=== PATIENT | male | born 1990 | race Caucasian/White ===

== ENCOUNTER 2017-10-30 08:21 | Day surgery (SDC) | payer OTHER ==
[~2017-10-30 08:21] MED LIST: Bupivacaine 25%/EPINEPHrine/PF 30 ML ONE; Lactated Ringers 1,000 ML IV SCH; ceFAZolin 2 GM in Premix Bag 1 BAG IV SCH
--- NOTE | 2017-10-30 08:45 | PCM.PREANE ---
Preanesthetic Assessment - Anesthesia/Transfusion/Family Hx Anesthesia History: Prior Anesthesia Without Reaction Transfusion History: No Prior Transfusion(s) - Review of Systems General: No Symptoms Pulmonary: No Symptoms Cardiovascular: No Symptoms Gastrointestinal: No Symptoms Neurological: No Symptoms Other: Reports: None - Physical Assessment Height: 1.83 m Weight: 158.757 kg ASA Class: 2 Mental Status: Alert & Oriented x3 Airway Class: Mallampati = 1 Dentition: Reports: Normal Dentition ROM/Head Extension: Full Lungs: Clear to Auscultation, Normal Respiratory Effort Cardiovascular: Regular Rate, Regular Rhythm - Allergies Allergies/Adverse Reactions: Allergies Allergy/AdvReac Type Severity Reaction Status Date / Time No Known Allergies Allergy Verified 10/28/17 13:32 - Anesthesia Plan Pre-Op Medication Ordered: None - Acknowledgements Anesthesia Type Planned: General Anesthesia Pt an Appropriate Candidate for the Planned Anesthesia: Yes Alternatives and Risks of Anesthesia Discussed w Pt/Guardian: Yes Pt/Guardian Understands and Agrees with Anesthesia Plan: Yes Additional Comments: PMH: morbid obesity, htn (on lisinopril and metopralol). PLAN: GET PreAnesthesia Questionnaire Other HEENT History: wears glasses Cardiovascular History: Reports: Hypertension Respiratory History: Reports: Other (See Below) Other Respiratory History: had recent sleep study for sleep apnea, no results yet Gastrointestinal History: Reports: GERD Endocrine/Metabolic History: Reports: Obesity/BMI 30+ - Past Surgical History Head Surgeries/Procedures: Reports: None Musculoskeletal Surgical History: Reports: Other (See Below) Other Musculoskeletal Surgeries/Procedures:: bilateral ACL repairs (has screw in both knees) - SUBSTANCE USE Smoking Status *Q: Former Smoker Recreational Drug Use History: No - HOME MEDS Home Medications: Home Meds Hydrocodone/Acetaminophen [Hydrocodon-Acetaminophen 5-325] 1 tab PO ASDIRECTED PRN 10/28/17 [History] Losartan/Hydrochlorothiazide [Losartan-HCTZ 50-12.5 MG] 1 tab PO BEDTIME [History] Metoprolol Succinate 25 mg PO BEDTIME 10/28/17 [History] Omeprazole 20 mg PO DAILY 10/28/17 [History] - CURRENT (IN HOUSE) MEDS Current Meds: Current Medications Lactated Ringer's (Ringers, Lactated) 1,000 mls @ 125 mls/hr IV ASDIRECTED CHARLINE Last Admin: 10/30/17 08:36 Dose: 125 mls/hr Cefazolin Sodium/Dextrose 2 gm (/ Premix) 50 mls @ 50 mls/hr IV ONETIME CHARLINE Discontinued Medications Bupivacaine HCl/Epinephrine Bitart (Sensorc Mpf 0.25%-Epi [id number]) Confirm Administered Dose 30 mls @ as directed .ROUTE .STK-MED ONE Stop: 10/30/17 08:20
[2017-10-30] MEDS ORDERED: Lidocaine 2% 5 ML SDV ONE (09:03)
[2017-10-30] MEDS ORDERED: Rocuronium 10 MG/ML 10 ML Syringe ONE (09:04)
[2017-10-30] MEDS ORDERED: Neostigmine Methylsulfate 1 MG/ML 5 ML Syringe ONE (09:04)
[2017-10-30] MEDS ORDERED: Midazolam 1 MG/ML 2 ML SDV ONE (09:04)
[2017-10-30] MEDS ORDERED: Propofol 200 MG/20 ML SDV ONE ×2 (09:04→10:54)
[2017-10-30] MEDS ORDERED: Ondansetron 4 MG/2 ML SDV ONE (09:04)
[2017-10-30] MEDS ORDERED: fentaNYL 250 MCG/5 ML SDV ONE (09:04)
[2017-10-30] MEDS ORDERED: HYDROmorphone 2 MG/ML Syringe ONE (09:11)
[2017-10-30] MEDS ORDERED: Thrombin (Bovine) 5,000 Unit Kit ONE (09:27)
[2017-10-30] MEDS ORDERED: Gelatin Sponge,Absorbable 12-7 mm Sponge TOP ONE (09:27)
[2017-10-30] MEDS ORDERED: fentaNYL 100 MCG/2 ML SDV ONE (11:33)
--- NOTE | 2017-10-30 11:51 | PCM.OPNOTE ---
- General Post-Op/Procedure Note Date of Surgery/Procedure: 10/30/17 Operative Procedure(s): ORIF left clavicle Findings: comminuted displaced clavicle Pre Op Diagnosis: comminuted displaced left clavicle fx Post-Op Diagnosis: same Anesthesia Technique: General ET Tube Primary Surgeon: Anshul Guillen Mai Hand Fretted Instrument Maker: Christal Colindres Reason Hand Fretted Instrument Maker Was Necessary: reduction, positioning and closing EBL in mLs: 30 Complications: none Condition: Good
[2017-10-30] MEDS ORDERED: Acetaminophen/HYDROcodone 325-5 MG Tab ONE (11:58)
[2017-10-30] MEDS ORDERED: fentaNYL 100 MCG/2 ML SDV IVPUSH PRN (12:13)
--- NOTE | 2017-10-30 13:16 | OR ---
SURGEON: Anshul Webster MD DATE OF PROCEDURE: 10/30/2017 CLAIMS ADJUSTOR: Christal Colindres PA-C. PREOPERATIVE DIAGNOSIS: Displaced comminuted left clavicle fracture. POSTOPERATIVE DIAGNOSIS: Displaced comminuted left clavicle fracture. OPERATION PERFORMED: Open reduction and internal fixation of left clavicle. ANESTHESIA: General. COMPLICATIONS: None. ESTIMATED BLOOD LOSS: 30 mL. SPECIMENS: None. IMPLANTS: William left distal clavicle plate, one 3.5 interfragmentary screw, three medial nonlocking 3.5 screws, one lateral 3.5 nonlocking screw, and four 3.5 locking screws. INDICATIONS: The patient is a 26-year-old male, who suffered a comminuted fracture several weeks ago. Due to continued pain and displacement, it was decided to undergo operative fixation. He understands the risks, benefits, alternatives, complications of the procedure including, but limited to infection, neurovascular injury, continued pain, nonresolution of symptoms, nonunion, malunion, need for further surgery, deep infection, and he wished to proceed. DESCRIPTION OF PROCEDURE: The patient was seen in the preoperative area. Upper extremity marked with the patient. He was transferred to the operating room and placed supine on the operating room table. General anesthesia was induced. Endotracheal tube was placed. He received preoperative antibiotics, Ancef. The left upper extremity was prepped and draped in a fashion using alcohol followed by ChloraPrep. After placing a bump under the left shoulder. A formal time-out was taken, identifying the correct patient, procedure, and extremity. Area over top of the distal third of the clavicle was marked out. This was then anesthetized with 0.5% Marcaine with epinephrine and then a 10 cm incision centered over the fracture site was made. Dissection was carried down to the subcutaneous tissues. Hemostasis was obtained. The fascia between the deltoid and trap and pec was opened in the platysma and the fascia was opened over the fracture. There was noted be comminuted fracture and was already beginning to heal. Subperiosteal dissection over the fracture was made. The comminuted pieces were stuck in the soft tissue anteriorly. The fracture was able to be reduced. Anatomically, there was noted be a gap laterally from the comminuted fracture. Interfragmentary screw was then placed from anterior to posterior. It was difficult to find a plate to fit from the set, but a distal plate was settled upon 4th screw holes medial and seven lateral. A 3.5 screw was placed medial and lateral to reduce the plate and two more screws, 3.5 nonlocking screws were placed medial. The screw just medial to the fracture was not able to be placed because of the interfragmentary screw, and then four locking screws were placed bi-cortically in the lateral position. The arm moved well. Following this, there was no motion at the fracture site. It was held in anatomic reduction. Wound was then thoroughly irrigated. The fascia was closed with 0 Vicryl, subcutaneous tissues with 2-0 Strata-Fix, and the skin was closed with a running 4-0 Monocryl. Sterile dressing was applied. The patient was extubated in operating room and transferred to recovery room in stable condition. Sponge and needle counts were correct at the end of the case. There were no complications. PLAN: The patient will be kept nonweightbearing with a sling. CATHI ARCHULETA /[id number]
--- NOTE | 2017-10-30 14:28 | PCM.POSTAN ---
POST ANESTHESIA ASSESSMENT - MENTAL STATUS Mental Status: Alert, Oriented - RESPIRATORY Respiratory Status: Respiratory Rate WNL, Airway Patent, O2 Saturation Stable - CARDIOVASCULAR CV Status: Pulse Rate WNL, Blood Pressure Stable - GASTROINTESTINAL GI Status: No Symptoms - POST OP HYDRATION Hydration Status: Adequate & Stable
--- NOTE | 2017-10-30 14:52 | PCM48HPAN ---
Post Anesthesia Note - EVALUATION WITHIN 48HRS OF ANESTHETIC Vital Signs in Normal Range: Yes Patient Participated in Evaluation: Yes Respiratory Function Stable: Yes Airway Patent: Yes Cardiovascular Function Stable: Yes Hydration Status Stable: Yes Pain Control Satisfactory: Yes Nausea and Vomiting Control Satisfactory: Yes Mental Status Recovered: Yes
--- NOTE | 2017-10-30 16:46 | CR ---
EXAMINATION: Left clavicle HISTORY: ORIF COMPARISON: 10/28/2017 TECHNIQUE: 2 views FINDINGS/IMPRESSION: There is screw and plate fixation of a comminuted mid left clavicle fracture in near-anatomic alignment. The remaining osseous structures and joint spaces appear preserved.
== END 2017-10-30 16:15 | disposition home or self-care (01) ==
LOC: MW.SDS 08:21
PROVIDERS: ATTEND Orthopaedic Surgery
DX: S42.002A Fracture of unspecified part of left clavicle, initial encounter for closed fracture (principal); I10 Essential (primary) hypertension; M25.562 Pain in left knee; K21.9 Gastro-esophageal reflux disease without esophagitis; E66.9 Obesity, unspecified; W01.0XXA Fall on same level from slipping, tripping and stumbling without subsequent striking against object, initial encounter; Z79.51 Long term (current) use of inhaled steroids; Z79.899 Other long term (current) drug therapy; Z68.42 Body mass index [BMI] 45.0-49.9, adult
CPT/HCPCS: 23515; 73000; C1713; J1170; J2250; J2405; J3010; J7120; 00450; J2704

== ENCOUNTER 2018-02-10 08:20 | Emergency (ER) | payer OTHER ==
--- NOTE | 2018-02-10 08:39 | EDM.PDOC ---
ED HPI GENERAL MEDICAL PROBLEM - General Chief Complaint: Skin Complaint Stated Complaint: ITCHY HANDS AND RASH ON ABDOMEN Time Seen by Provider: 02/10/18 08:37 Source of Information: Reports: Patient - History of Present Illness INITIAL COMMENTS - FREE TEXT/NARRATIVE: HISTORY AND PHYSICAL: History of present illness: Patient presents with an itchy rash involving his hands and around his navel, he did take Benadryl 2 hours prior which results symptoms, his employer had recommended that he be evaluated. Patient is asymptomatic at current no lip swelling tongue swelling or oral pharyngeal edema no rash No fever nausea vomiting chills sweats no chest pain shortness breath headache dizziness palpitation no bowel or urine symptoms No new factors in the patient's life he has had similar symptoms in the past he may benefit from allergy testing [] Review of systems: As per history of present illness and below otherwise all systems reviewed and negative. Past medical history: As per history of present illness and as reviewed below otherwise noncontributory. Surgical history: As per history of present illness and as reviewed below otherwise noncontributory. Social history: No reported history of drug or alcohol abuse. Family history: As per history of present illness and as reviewed below otherwise noncontributory. Physical exam: HEENT: Atraumatic, normocephalic, pupils reactive, negative for conjunctival pallor or scleral icterus, mucous membranes moist, throat clear, neck supple, nontender, trachea midline. Lungs: Clear to auscultation, breath sounds equal bilaterally, chest nontender. Heart: S1S2, regular, negative for clicks, rubs, or JVD. Abdomen: Soft, nondistended, nontender. Negative for masses or hepatosplenomegaly. Negative for costovertebral tenderness. Pelvis: Stable nontender. Genitourinary: Deferred. Rectal: Deferred. Extremities: Atraumatic, negative for cords or calf pain. Neurovascular unremarkable. Neuro: Awake, alert, oriented. Cranial nerves II through XII unremarkable. Cerebellum unremarkable. Motor and sensory unremarkable throughout. Exam nonfocal. Skin unremarkable Diagnostics: [Clinical ] Therapeutics: [ continue Benadryl/Zantac ] Impression: Dermatitis resolved deffinitive disposition and diagnosis as appropriate pending reevaluation and review of above. - Related Data Allergies Allergy/AdvReac Type Severity Reaction Status Date / Time No Known Allergies Allergy Verified 02/10/18 08:32 Home Meds: Home Meds Hydrocodone/Acetaminophen [Hydrocodon-Acetaminophen 5-325] 1 tab PO ASDIRECTED PRN 10/28/17 [History] Losartan/Hydrochlorothiazide [Losartan-HCTZ 50-12.5 MG] 1 tab PO BEDTIME [History] Metoprolol Succinate 25 mg PO BEDTIME 10/28/17 [History] Omeprazole 20 mg PO DAILY 10/28/17 [History] Past Medical History Other HEENT History: wears glasses Cardiovascular History: Reports: Hypertension Respiratory History: Reports: Other (See Below) Other Respiratory History: had recent sleep study for sleep apnea, no results yet Gastrointestinal History: Reports: GERD Endocrine/Metabolic History: Reports: Obesity/BMI 30+ - Past Surgical History Head Surgeries/Procedures: Reports: None Musculoskeletal Surgical History: Reports: Other (See Below) Other Musculoskeletal Surgeries/Procedures:: bilateral ACL repairs (has screw in both knees) Social & Family History - Tobacco Use Smoking Status *Q: Former Smoker - Recreational Drug Use Recreational Drug Use: No Drug Use in Last 12 Months: No ED ROS GENERAL - Review of Systems Review Of Systems: ROS reveals no pertinent complaints other than HPI. ED EXAM, SKIN/RASH Exam: See Below Departure - Departure Time of Disposition: 08:39 Disposition: Home, Self-Care 01 Condition: Good Clinical Impression: Dermatitis - Discharge Information Referrals: Jennifer Mccarty NP [Primary Care Provider] - Additional Instructions: The following information is given to patients seen in the emergency department who are being discharged to home. This information is to outline your options for follow-up care. We provide all patients seen in our emergency department with a follow-up referral. The need for follow-up, as well as the timing and circumstances, are variable depending upon the specifics of your emergency department visit. If you don't have a primary care physician on staff, we will provide you with a referral. We always advise you to contact your personal physician following an emergency department visit to inform them of the circumstance of the visit and for follow-up with them and/or the need for any referrals to a consulting specialist. The emergency department will also refer you to a specialist when appropriate. This referral assures that you have the opportunity for follow-up care with a specialist. All of these measure are taken in an effort to provide you with optimal care, which includes your follow-up. Under all circumstances we always encourage you to contact your private physician who remains a resource for coordinating your care. When calling for follow-up care, please make the office aware that this follow-up is from your recent emergency room visit. If for any reason you are refused follow-up, please contact the [facility] emergency department at and asked to speak to the emergency department charge nurse.
== END 2018-02-10 08:46 | disposition home or self-care (01) ==
LOC: MW.ED 08:20
DX: L30.9 Dermatitis, unspecified (principal); I10 Essential (primary) hypertension; E66.9 Obesity, unspecified; Z87.891 Personal history of nicotine dependence
CPT/HCPCS: 99282

== ENCOUNTER 2018-02-10 11:15 | Emergency (ER) | payer OTHER ==
[2018-02-10] MEDS ORDERED: methylPREDNISolone Sodium Succinate 125 MG/2 ML SDV IM ONE (12:00)
--- NOTE | 2018-02-10 12:03 | EDM.PDOC ---
ED HPI GENERAL MEDICAL PROBLEM - General Chief Complaint: Skin Complaint Stated Complaint: ITCHY SWELLING HANDS Time Seen by Provider: 02/10/18 12:01 Source of Information: Reports: Patient - History of Present Illness INITIAL COMMENTS - FREE TEXT/NARRATIVE: HISTORY AND PHYSICAL: History of present illness: Patient returns for the second time today with itchy hands he states are swollen there is minimal swelling likely any swelling results from high salt intake rather than allergy there is no lip swelling tongue swelling or pharyngeal edema dermatitis is improved he has been taking Benadryl I have actually not seen any rash is complained of itchy rash a couple of times today No fever nausea vomiting chills sweats Review of systems: As per history of present illness and below otherwise all systems reviewed and negative. Past medical history: As per history of present illness and as reviewed below otherwise noncontributory. Surgical history: As per history of present illness and as reviewed below otherwise noncontributory. Social history: No reported history of drug or alcohol abuse. Family history: As per history of present illness and as reviewed below otherwise noncontributory. Physical exam: HEENT: Atraumatic, normocephalic, pupils reactive, negative for conjunctival pallor or scleral icterus, mucous membranes moist, throat clear, neck supple, nontender, trachea midline. ellipse swelling tongue swelling or pharyngeal edema or stridor Lungs: Clear to auscultation, breath sounds equal bilaterally, chest nontender. Heart: S1S2, regular, negative for clicks, rubs, or JVD. Abdomen: Soft, nondistended, nontender. Negative for masses or hepatosplenomegaly. Negative for costovertebral tenderness. Pelvis: Stable nontender. Genitourinary: Deferred. Rectal: Deferred. Extremities: Atraumatic, negative for cords or calf pain. Neurovascular unremarkable. Neuro: Awake, alert, oriented. Cranial nerves II through XII unremarkable. Cerebellum unremarkable. Motor and sensory unremarkable throughout. Exam nonfocal. Skin unremarkable Diagnostics: [] Therapeutics: [ continue Benadryl Zantac Medrol Dosepak Sudden Solu-Medrol 125 mg IM ] Impression: [ dermatitis -improved] Definitive disposition and diagnosis as appropriate pending reevaluation and review of above. Bilateral Hand Pain Score (Numeric/FACES): 7 - Related Data Allergies Allergy/AdvReac Type Severity Reaction Status Date / Time No Known Allergies Allergy Verified 02/10/18 08:32 Home Meds: Home Meds Hydrocodone/Acetaminophen [Hydrocodon-Acetaminophen 5-325] 1 tab PO ASDIRECTED PRN 10/28/17 [History] Losartan/Hydrochlorothiazide [Losartan-HCTZ 50-12.5 MG] 1 tab PO BEDTIME [History] Metoprolol Succinate 25 mg PO BEDTIME 10/28/17 [History] Omeprazole 20 mg PO DAILY 10/28/17 [History] Past Medical History Other HEENT History: wears glasses Cardiovascular History: Reports: Hypertension Respiratory History: Reports: Other (See Below) Other Respiratory History: had recent sleep study for sleep apnea, no results yet Gastrointestinal History: Reports: GERD Endocrine/Metabolic History: Reports: Obesity/BMI 30+ - Past Surgical History Head Surgeries/Procedures: Reports: None Musculoskeletal Surgical History: Reports: Other (See Below) Other Musculoskeletal Surgeries/Procedures:: bilateral ACL repairs (has screw in both knees) Social & Family History - Tobacco Use Smoking Status *Q: Never Smoker Second Hand Smoke Exposure: No - Caffeine Use Caffeine Use: Reports: None - Recreational Drug Use Recreational Drug Use: No Drug Use in Last 12 Months: No ED ROS GENERAL - Review of Systems Review Of Systems: ROS reveals no pertinent complaints other than HPI. ED EXAM, SKIN/RASH Exam: See Below Course - Orders/Labs/Meds Orders: Active Orders 24 hr Category Date Time Status methylPREDNISolone Sod Succ [Solu-MEDROL] Med 02/10/18 12:00 Once 125 mg IM ONETIME ONE Departure - Departure Time of Disposition: 12:03 Disposition: Home, Self-Care 01 Condition: Good Clinical Impression: Dermatitis - Discharge Information Referrals: Lea Lewis MD [Primary Care Provider] - Additional Instructions: The following information is given to patients seen in the emergency department who are being discharged to home. This information is to outline your options for follow-up care. We provide all patients seen in our emergency department with a follow-up referral. The need for follow-up, as well as the timing and circumstances, are variable depending upon the specifics of your emergency department visit. If you don't have a primary care physician on staff, we will provide you with a referral. We always advise you to contact your personal physician following an emergency department visit to inform them of the circumstance of the visit and for follow-up with them and/or the need for any referrals to a consulting specialist. The emergency department will also refer you to a specialist when appropriate. This referral assures that you have the opportunity for follow-up care with a specialist. All of these measure are taken in an effort to provide you with optimal care, which includes your follow-up. Under all circumstances we always encourage you to contact your private physician who remains a resource for coordinating your care. When calling for follow-up care, please make the office aware that this follow-up is from your recent emergency room visit. If for any reason you are refused follow-up, please contact the [facility] emergency department at and asked to speak to the emergency department charge nurse. - My Orders Last 24 Hours: My Active Orders 02/10/18 12:00 methylPREDNISolone Sod Succ [Solu-MEDROL] 125 mg IM ONETIME ONE - Assessment/Plan Last 24 Hours: My Active Orders 02/10/18 12:00 methylPREDNISolone Sod Succ [Solu-MEDROL] 125 mg IM ONETIME ONE
== END 2018-02-10 12:40 | disposition home or self-care (01) ==
LOC: MW.ED 11:15
DX: L30.9 Dermatitis, unspecified (principal); I10 Essential (primary) hypertension; E66.9 Obesity, unspecified
CPT/HCPCS: 96372; 99283; J2930

== ENCOUNTER 2019-08-04 20:05 | Emergency (ER) | payer OTHER ==
[2019-08-04] MEDS ORDERED: Sodium Chloride 0.9% 2.5 ML Syringe FLUSH PRN (20:11)
[2019-08-04] MEDS ORDERED: Sodium Chloride 0.9% 10 ML Syringe FLUSH PRN (20:11)
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
[2019-08-04] MEDS ORDERED: Pantoprazole 40 MG Vial IVPUSH ONE (20:17)
[2019-08-04] MEDS ORDERED: Sodium Chloride 0.9% 1,000 ML IV ONE ×3 (20:17→22:46)
[2019-08-04] MEDS ORDERED: Ondansetron 4 MG/2 ML SDV IVPUSH ONE (20:28)
[2019-08-04] MEDS ORDERED: Sodium Chloride 0.9% 20 ML ONE (20:28)
[2019-08-04 21:08] LABS: BLOOD UREA NITROGEN,BUN 12 mg/dL (7.0-18.0); CHLORIDE,CL 108 mmol/L (98-107); GLUCOSE RANDOM 102 mg/dL (74-106); LIPASE 130 U/L (73-393); POTASSIUM,K 4.3 mmol/L (3.5-5.1); SODIUM,NA 144 mmol/L (136-148)
[2019-08-04] MEDS ORDERED: Iopamidol 755 MG/ML 500 ML Multipack Bottle IVPUSH STA (22:41)
--- NOTE | 2019-08-04 23:05 | CT ---
INDICATION: Blood and emesis and stool for 2 days. Status post gastric bypass. CT ABDOMEN AND PELVIS WITH CONTRAST TECHNIQUE: Multidetector CT imaging was performed through the abdomen and pelvis following intravenous contrast administration using 100 mL Isovue 370. Coronal and sagittal reconstructions were generated. COMPARISON: None. FINDINGS: Lower chest: Lung bases are clear. Liver: Within normal limits. Gallbladder and bile ducts: No gallbladder wall thickening or calcified gallstones. No biliary dilation identified. Pancreas: Unremarkable. Spleen: Normal. Adrenals: No nodules or masses. Kidneys, ureters, and urinary bladder: No renal masses or hydronephrosis. No bladder mass or definite wall thickening. Gastrointestinal tract: Postoperative changes of Catia-en-Y gastric bypass. Mild fat stranding in the left upper quadrant about the gastrojejunal anastomosis, suggesting inflammation. No evidence of bowel obstruction or bowel wall thickening. The appendix is normal. A few sigmoid colon diverticula, without evidence of diverticulitis. Vascular structures: Normal for age. Peritoneum: No free air, abscess, or significant free fluid. Lymph nodes: No pathologically enlarged nodes identified. Reproductive organs: No pelvic masses. Bones: Mild spinal degenerative changes. IMPRESSION: 1. Status post Catia-en-Y gastric bypass. Mild fat stranding about the gastrojejunal anastomosis suggests inflammation. No free air to suggest perforation, and no evidence of abscess. 2. Mild sigmoid colon diverticulosis. JACK MONSALVE MD [employer] Dictated by Malcom Monsalve MD @ 08/04/2019 11:00:34 PM Dictated by: Malcom Monsalve MD @ 08/04/2019 23:04:10 (Electronically Signed)
== END 2019-08-04 23:20 ==
LOC: MW.ED 20:05
DX: K91.89 Other postprocedural complications and disorders of digestive system (principal); I10 Essential (primary) hypertension; E66.9 Obesity, unspecified; K21.9 Gastro-esophageal reflux disease without esophagitis; Z68.42 Body mass index [BMI] 45.0-49.9, adult; Z79.899 Other long term (current) drug therapy; Y83.8 Other surgical procedures as the cause of abnormal reaction of the patient, or of later complication, without mention of misadventure at the time of the procedure
CPT/HCPCS: 36415; 74177; 80053; 83690; 85014; 85018; 85025; 85610; 96361; 96374; 96375; 99285; C9113; J2405; J7040; Q9967; 93005

== ENCOUNTER 2019-08-17 19:26 | Emergency (ER) | payer SELFPAY ==
[2019-08-17] MEDS ORDERED: Sodium Chloride 0.9% 1,000 ML IV ONE (19:46)
[2019-08-17] MEDS ORDERED: Sodium Chloride 0.9% 1,000 ML IV SCH (20:00)
--- NOTE | 2019-08-17 20:13 | EDM.PDOC ---
ED HPI GENERAL MEDICAL PROBLEM - General Chief Complaint: General Stated Complaint: SOB Time Seen by Provider: 08/17/19 19:42 - History of Present Illness INITIAL COMMENTS - FREE TEXT/NARRATIVE: HISTORY AND PHYSICAL: History of present illness: Patient is a 28-year-old white male history gastric bypass surgery and recent diagnosed gastric ulcer who states his hemoglobin was as low as 8 collected without blood transfusion increased to 11 he comes in now with similar episode 2 what happened approximately 1 week prior which he felt weak and near syncopal on arrival he is quite pale he states he has had dark stools but that he is on iron currently also. He does not report any significant abdominal pain chest pain or shortness of breath. Review of systems: As per history of present illness and below otherwise all systems reviewed and negative. Past medical history: As per history of present illness and as reviewed below otherwise noncontributory. Surgical history: As per history of present illness and as reviewed below otherwise noncontributory. Social history: No reported history of drug or alcohol abuse. Family history: As per history of present illness and as reviewed below otherwise noncontributory. Physical exam: HEENT: Atraumatic, normocephalic, pupils reactive, marked conjunctival pallor no scleral icterus, mucous membranes moist, throat clear, neck supple, nontender , trachea midline. Lungs: Clear to auscultation, breath sounds equal bilaterally, chest nontender. Heart: S1S2, regular, negative for clicks, rubs, or JVD. Abdomen: Soft, nondistended, nontender. Negative for masses or hepatosplenomegaly. Negative for costovertebral tenderness. Pelvis: Stable nontender. Genitourinary: Deferred. Rectal: Deferred. Extremities: Atraumatic, negative for cords or calf pain. Neurovascular unremarkable. Neuro: Awake, alert, oriented. Cranial nerves II through XII unremarkable. Cerebellum unremarkable. Motor and sensory unremarkable throughout. Exam nonfocal. Diagnostics: CBC CMP PT/INR type and screen acute abdominal series with chest x-ray EKG Therapeutics: Saline 1 L bolus Impression: #1 history gastric bypass surgery #2 near syncope #3 GI bleed with anemia Definitive disposition and diagnosis as appropriate pending reevaluation and review of above. - Related Data Allergies Allergy/AdvReac Type Severity Reaction Status Date / Time No Known Allergies Allergy Verified 08/17/19 19:38 Home Meds: Home Meds Dextroamphetamine/Amphetamine [Adderall 20 mg Tablet] 20 mg PO DAILY 08/04/19 [ History] Ferrous Sulfate 325 mg PO DAILY 08/04/19 [History] Hyoscyamine [Hyomax-SL] 0.125 mg SL Q4H PRN 08/04/19 [History] Losartan/Hydrochlorothiazide [Losartan-HCTZ 50-12.5 MG] 1 each PO DAILY [History] Metoprolol Succinate [Toprol XL 100mg] 100 mg PO DAILY 08/04/19 [History] Omeprazole 1 tab PO DAILY 08/04/19 [History] Ondansetron [Zofran] 4 mg PO Q8H PRN 08/04/19 [History] Past Medical History - Past Health History Medical/Surgical History: Denies Medical/Surgical History Other HEENT History: wears glasses Cardiovascular History: Reports: Hypertension Respiratory History: Reports: Other (See Below) Other Respiratory History: had recent sleep study for sleep apnea, no results yet Gastrointestinal History: Reports: GERD Genitourinary History: Reports: None Musculoskeletal History: Reports: None Neurological History: Reports: None Psychiatric History: Reports: None Endocrine/Metabolic History: Reports: Obesity/BMI 30+ Insulin Pump Model and Rn Psych: None Hematologic History: Reports: None Immunologic History: Reports: None Oncologic (Cancer) History: Reports: None Dermatologic History: Reports: None - Infectious Disease History Infectious Disease History: Reports: None - Past Surgical History Head Surgeries/Procedures: Reports: None GI Surgical History: Reports: Other (See Below) Other GI Surgeries/Procedures: gastric bypass Musculoskeletal Surgical History: Reports: Other (See Below) Other Musculoskeletal Surgeries/Procedures:: bilateral ACL repairs (has screw in both knees) Social & Family History - Family History Family Medical History: Noncontributory - Tobacco Use Smoking Status *Q: Never Smoker - Caffeine Use Caffeine Use: Reports: None - Recreational Drug Use Recreational Drug Use: No ED ROS GENERAL - Review of Systems Review Of Systems: ROS reveals no pertinent complaints other than HPI. ED EXAM, GENERAL - Physical Exam Exam: See Below (See dictation) Course - Vital Signs Last Recorded V/S: Last Vital Signs Temp 35 C L 08/17/19 19:26 Pulse 100 08/17/19 19:26 Resp 24 H 08/17/19 19:26 BP 106/67 08/17/19 19:26 Pulse Ox 99 08/17/19 19:26 - Orders/Labs/Meds Orders: Active Orders 24 hr Category Date Time Status EKG 12 Lead [EKG Documentation Completion] [RC] STAT Care 08/17/19 19:49 Active Abdomen 1V Upright [CR] Stat Exams 08/17/19 19:48 Taken Chest 1V Frontal [CR] Stat Exams 08/17/19 19:48 Taken TYPE AND SCREEN [BBK] Stat Lab 08/17/19 19:48 Ordered Sodium Chloride 0.9% [Normal Saline] 1,000 ml Med 08/17/19 19:46 Active IV .Bolus Sodium Chloride 0.9% [Normal Saline] 1,000 ml Med 08/17/19 20:00 Active IV ASDIRECTED Medication Orders Sodium Chloride (Normal Saline) 1,000 mls @ 999 mls/hr IV .Bolus ONE Stop: 08/17/19 20:46 Last Admin: 08/17/19 19:50 Dose: 999 mls/hr Sodium Chloride (Normal Saline) 1,000 mls @ 999 mls/hr IV ASDIRECTED CHARLINE Last Admin: 08/17/19 19:50 Dose: 999 mls/hr Labs: Laboratory Tests 08/17/19 08/17/19 08/17/19 Range/Units 19:34 19:34 19:34 WBC 11.69 H (4.0-11.0) K/uL RBC 3.19 L (4.50-5.90) M/uL Hgb 8.6 L (13.0-17.0) g/dL Hct 27.3 L (38.0-50.0) % MCV 85.6 (80.0-98.0) fL MCH 27.0 (27.0-32.0) pg MCHC 31.5 (31.0-37.0) g/dL RDW Std Deviation 44.1 (28.0-62.0) fl RDW Coeff of Vipin 14 (11.0-15.0) % Plt Count 621 H (150-400) K/uL MPV 9.50 (7.40-12.00) fL Neut % (Auto) 69.8 (48.0-80.0) % Lymph % (Auto) 20.2 (16.0-40.0) % [place] % (Auto) 9.1 (0.0-15.0) % Eos % (Auto) 0.6 (0.0-7.0) % Baso % (Auto) 0.3 (0.0-1.5) % Neut # (Auto) 8.2 H (1.4-5.7) K/uL Lymph # (Auto) 2.4 (0.6-2.4) K/uL [place] # (Auto) 1.1 H (0.0-0.8) K/uL Eos # (Auto) 0.1 (0.0-0.7) K/uL Baso # (Auto) 0.0 (0.0-0.1) K/uL Nucleated RBC % 0.0 /100WBC Nucleated RBCs # 0 K/uL INR 1.10 Sodium 142 (136-148) mmol/L Potassium 3.3 L (3.5-5.1) mmol/L Chloride 106 (98-107) mmol/L Carbon Dioxide 21.8 (21.0-32.0) mmol/L BUN 13 (7.0-18.0) mg/dL Creatinine 1.1 (0.8-1.3) mg/dL Est Cr Clr Drug Dosing 104.58 mL/min Estimated GFR (MDRD) > 60.0 ml/min Glucose 131 H (74-106) mg/dL Calcium 9.0 (8.5-10.1) mg/dL Total Bilirubin 0.8 (0.2-1.0) mg/dL AST 31 (15-37) IU/L ALT 42 (14-63) IU/L Alkaline Phosphatase 93 (46-116) U/L Total Protein 6.4 (6.4-8.2) g/dL Albumin 3.6 (3.4-5.0) g/dL Globulin 2.8 (2.6-4.0) g/dL Albumin/Globulin Ratio 1.3 (0.9-1.6) Meds: Medications Generic Name Dose Route Start Last Admin Trade Name Freq PRN Reason Stop Dose Admin Sodium Chloride 1,000 mls @ 999 mls/hr 08/17/19 19:46 08/17/19 19:50 Normal Saline IV 08/17/19 20:46 999 mls/hr .Bolus ONE Administration Sodium Chloride 1,000 mls @ 999 mls/hr 08/17/19 20:00 08/17/19 19:50 Normal Saline IV 999 mls/hr ASDIRECTED CHARLINE Administration Departure - Departure Time of Disposition: 20:23 Disposition: DC/Tfer to Acute Hospital 02 Condition: Good Clinical Impression: Symptomatic anemia - Discharge Information Referrals: PCP,Unknown [Primary Care Provider] - Forms: ED Department Discharge - My Orders Last 24 Hours: My Active Orders 08/17/19 19:46 Sodium Chloride 0.9% [Normal Saline] 1,000 ml IV .Bolus 08/17/19 19:48 Abdomen 1V Upright [CR] Stat Chest 1V Frontal [CR] Stat TYPE AND SCREEN [BBK] Stat 08/17/19 19:49 EKG 12 Lead [EKG Documentation Completion] [RC] STAT - Assessment/Plan Last 24 Hours: My Active Orders 08/17/19 19:46 Sodium Chloride 0.9% [Normal Saline] 1,000 ml IV .Bolus 08/17/19 19:48 Abdomen 1V Upright [CR] Stat Chest 1V Frontal [CR] Stat TYPE AND SCREEN [BBK] Stat 08/17/19 19:49 EKG 12 Lead [EKG Documentation Completion] [RC] STAT
[2019-08-17 20:15] LABS: BLOOD UREA NITROGEN,BUN 13 mg/dL (7.0-18.0); CARBON DIOXIDE,CO2 21.8 mmol/L (21.0-32.0); CHLORIDE,CL 106 mmol/L (98-107); GLUCOSE RANDOM 131 mg/dL (74-106); POTASSIUM,K 3.3 mmol/L (3.5-5.1); SODIUM,NA 142 mmol/L (136-148)
--- NOTE | 2019-08-17 20:47 | CR ---
INDICATION: Dizziness, shortness of breath TECHNIQUE: Chest 1 view. COMPARISON: None FINDINGS: Cardiovascular and mediastinum: Heart size and vasculature are normal in caliber and appearance. Mediastinum is within normal limits. Lungs and pleural space: Lungs are clear. No sign of infiltrate or mass. No sign of pleural effusion. No pneumothorax. Bones and soft tissues: Plate and screw fixation left clavicle. IMPRESSION: Unremarkable chest. Dictated by Marcos Lovelace MD @ 08/17/2019 8:46:08 PM Dictated by: Marcos Lovelace MD @ 08/17/2019 20:46:12 (Electronically Signed)
--- NOTE | 2019-08-17 20:47 | CR ---
INDICATION: Dizziness, shortness of breath TECHNIQUE: Abdomen 1 view. COMPARISON: None FINDINGS: The lower pelvis is not included on the image. Bowel: Bowel pattern is normal. Soft tissues: No sign of free air. No sign of soft tissue mass. No suspicious calcifications. Bones: Unremarkable for age. IMPRESSION: Unremarkable abdomen. Dictated by Marcos Lovelace MD @ 08/17/2019 8:46:45 PM Dictated by: Marcos Lovelace MD @ 08/17/2019 20:46:51 (Electronically Signed)
== END 2019-08-17 21:20 ==
LOC: MW.ED 19:26
DX: D64.9 Anemia, unspecified (principal); K92.2 Gastrointestinal hemorrhage, unspecified; R55 Syncope and collapse; I10 Essential (primary) hypertension; E66.9 Obesity, unspecified; K21.9 Gastro-esophageal reflux disease without esophagitis; Z68.41 Body mass index [BMI] 40.0-44.9, adult; Z79.899 Other long term (current) drug therapy; Z98.84 Bariatric surgery status
CPT/HCPCS: 36415; 71045; 74018; 80053; 85025; 85610; 86850; 86900; 86901; 93005; 96360; 99285; J7040

== ENCOUNTER 2019-10-14 20:53 | Emergency (ER) | payer BC ==
[2019-10-14] MEDS ORDERED: Sodium Chloride 0.9% 10 ML Syringe FLUSH PRN (21:33)
[2019-10-14] MEDS ORDERED: Sodium Chloride 0.9% 2.5 ML Syringe FLUSH PRN (21:33)
[2019-10-14] MEDS ORDERED: Morphine 4 MG/ML Syringe IVPUSH ONE ×2 (21:37→21:39)
[2019-10-14] MEDS ORDERED: Sodium Chloride 0.9% 1,000 ML IV ONE (21:37)
[2019-10-14] MEDS ORDERED: Ondansetron 4 MG/2 ML SDV IVPUSH ONE ×2 (21:38→22:23)
[2019-10-14] MEDS ORDERED: HYDROmorphone 1 MG/ML Syringe IVPUSH ONE (22:22)
[2019-10-14 22:26] LABS: BLOOD UREA NITROGEN,BUN 13 mg/dL (7.0-18.0); CARBON DIOXIDE,CO2 22.5 mmol/L (21.0-32.0); CHLORIDE,CL 106 mmol/L (98-107); GLUCOSE RANDOM 95 mg/dL (74-106); LIPASE 156 U/L (73-393); POTASSIUM,K 3.2 mmol/L (3.5-5.1); SODIUM,NA 142 mmol/L (136-148)
[2019-10-14] MEDS ORDERED: Iopamidol 755 MG/ML 200 ML Multipack Bottle IVPUSH ONE (23:35)
--- NOTE | 2019-10-14 23:57 | CT ---
INDICATION: Right upper quadrant pain TECHNIQUE: CT abdomen and pelvis acquired with 100 cc Isovue 370 IV contrast. COMPARISON: August 04, 2019 FINDINGS: Lower chest: Unremarkable. Liver: Unremarkable. Spleen: Unremarkable. Pancreas: Unremarkable. Gallbladder and bile ducts: Mild fat stranding around the gallbladder. Adrenal glands: Unremarkable. Kidneys: Unremarkable. GI tract: Status post gastric bypass procedure. Minimal colonic diverticulosis. Vascular structures: Unremarkable. Lymph nodes: Unremarkable. Miscellaneous: Unremarkable. No free air or significant free fluid. Pelvic Organs: Unremarkable. Bones: Unremarkable for age. IMPRESSION: Mild fat stranding around the gallbladder. Consider right upper quadrant ultrasound for further evaluation. Status post gastric bypass procedure without evidence for complication. Minimal colonic diverticulosis. Please note that all CT scans at this facility use dose modulation, iterative reconstruction, and/or weight-based dosing when appropriate to reduce radiation dose to as low as reasonably achievable. Dictated by Yumiko Dimas MD @ Oct 14 2019 11:50PM Signed by Dr. Yumiko Dimas @ Oct 14 2019 11:56PM
--- NOTE | 2019-10-15 00:55 | US ---
INDICATION: Mild fat stranding around the gallbladder on CT from yesterday. COMPARISON: CT of the abdomen from yesterday. TECHNIQUE: Ultrasound examination of the right upper quadrant was performed. FINDINGS: There is mild cholelithiasis with a few small shadowing foci in the fundus of the moderately dilated gallbladder. The gallbladder wall is top normal in thickness at 3 millimeters, with no sign of pericholecystic fluid. A sonographic Stewart sign is not present. The common bile duct is normal in caliber at 3 mm. The pancreas is obscured by bowel gas. The liver shows no sign of mass or contour abnormality, and there is no sign of ascites. There is mildly increased echogenicity throughout the liver consistent with fatty infiltration. The right kidney is unremarkable. IMPRESSION: Mild cholelithiasis with no sign of acute cholecystitis. A sonographic Stewart sign is not present. No sign of biliary ductal dilatation. Fatty infiltration of the liver. Dictated by Mike Iqbal MD @ Oct 15 2019 12:49AM Signed by Dr. Mike Iqbal @ Oct 15 2019 12:54AM
--- NOTE | 2019-10-15 01:37 | EDM.PDOC ---
ED HPI GENERAL MEDICAL PROBLEM - General Chief Complaint: Abdominal Pain Stated Complaint: ABDOMINAL PAIN Time Seen by Provider: 10/14/19 21:00 Source of Information: Reports: Patient History Limitations: Reports: No Limitations - History of Present Illness Onset: Today Onset Time: 02:00 Duration: Hour(s): Location: Reports: Abdomen, Upper Extremity, Right Quality: Reports: Ache, Pressure, Stabbing Severity: Severe Improves with: Reports: None Worsens with: Reports: None Associated Symptoms: Reports: No Other Symptoms Right Upper Abdomen Pain Score (Numeric/FACES): 10 - Related Data Allergies Allergy/AdvReac Type Severity Reaction Status Date / Time No Known Allergies Allergy Verified 10/14/19 21:27 Home Meds: Home Meds Dextroamphetamine/Amphetamine [Adderall 20 mg Tablet] 20 mg PO DAILY 08/04/19 [ History] Ferrous Sulfate 325 mg PO DAILY 08/04/19 [History] Metoprolol Succinate [Toprol XL 100mg] 100 mg PO DAILY 08/04/19 [History] Omeprazole 1 tab PO DAILY 08/04/19 [History] Sucralfate 1 gm PO QID 10/14/19 [History] Past Medical History - Past Health History Medical/Surgical History: Denies Medical/Surgical History Other HEENT History: wears glasses Cardiovascular History: Reports: Hypertension Respiratory History: Reports: Sleep Apnea Other Respiratory History: had recent sleep study for sleep apnea, no results yet Gastrointestinal History: Reports: GERD Genitourinary History: Reports: None Musculoskeletal History: Reports: None Neurological History: Reports: None Psychiatric History: Reports: None Endocrine/Metabolic History: Reports: Obesity/BMI 30+ Insulin Pump Model and Environmental Remediation Specialist: None Hematologic History: Reports: Anemia Immunologic History: Reports: None Oncologic (Cancer) History: Reports: None Dermatologic History: Reports: None - Infectious Disease History Infectious Disease History: Reports: Chicken Pox - Past Surgical History Head Surgeries/Procedures: Reports: None GI Surgical History: Reports: Bariatric Procedure, Other (See Below) Other GI Surgeries/Procedures: gastric bypass Musculoskeletal Surgical History: Reports: Other (See Below) Other Musculoskeletal Surgeries/Procedures:: bilateral ACL repairs (has screw in both knees) Social & Family History - Family History Family Medical History: Noncontributory - Tobacco Use Smoking Status *Q: Former Smoker Used Tobacco, but Quit: Yes Month/Year Tobacco Last Used: March 2019 - Caffeine Use Caffeine Use: Reports: None - Recreational Drug Use Recreational Drug Use: No ED ROS GENERAL - Review of Systems Review Of Systems: See Below Constitutional: Reports: Decreased Appetite HEENT: Reports: No Symptoms Respiratory: Reports: No Symptoms Cardiovascular: Reports: No Symptoms Endocrine: Reports: No Symptoms GI/Abdominal: Reports: Abdominal Pain : Reports: No Symptoms Musculoskeletal: Reports: No Symptoms Skin: Reports: No Symptoms Neurological: Reports: No Symptoms Psychiatric: Reports: No Symptoms Hematologic/Lymphatic: Reports: No Symptoms Immunologic: Reports: No Symptoms ED EXAM, GI/ABD - Physical Exam Exam: See Below Exam Limited By: No Limitations General Appearance: Alert, WD/WN, Severe Distress Eyes: Bilateral: Normal Appearance, EOMI Ears: Normal External Exam, Normal Canal Nose: Normal Inspection, Normal Mucosa Throat/Mouth: Normal Inspection, Normal Lips, Normal Teeth, Normal Oropharynx, Normal Voice, No Airway Compromise Head: Atraumatic, Normocephalic Neck: Normal Inspection, Supple, Non-Tender, Full Range of Motion Respiratory/Chest: No Respiratory Distress, Lungs Clear, Normal Breath Sounds, No Accessory Muscle Use Cardiovascular: Normal Peripheral Pulses, Regular Rate, Rhythm, No Edema, No JVD , No Murmur GI/Abdominal Exam: Normal Bowel Sounds, Soft, No Mass, Pelvis Stable, Tender (Male) Exam: No Hernia, Normal Inspection Rectal (Males) Exam: Deferred Back Exam: Normal Inspection, Full Range of Motion Extremities: Normal Inspection, Normal Range of Motion, No Pedal Edema, Normal Capillary Refill Neurological: Alert, Oriented, CN II-XII Intact, Normal Cognition Psychiatric: Normal Affect, Normal Mood Skin Exam: Warm, Dry, Intact Lymphatic: No Adenopathy Course - Vital Signs Text/Narrative:: 28 year old presents the emergency room with severe right upper quadrant pain. Patient comfortable. States the morphine had no effect on the pain. Patient given 1 mg of Dilaudid which controlled his pain. Patient CT scan of the abdomen shows possible gallstones. Ultrasound was ordered which shows gallstones without any other problems. His assessment will be dialysis. Patient has a normal white count. Patient very comfortable be discharged home to follow-up with the surgeon. Last Recorded V/S: Last Vital Signs Temp 96.3 F 10/15/19 01:12 Pulse 68 10/15/19 01:12 Resp 16 10/15/19 01:12 BP 111/60 10/15/19 01:12 Pulse Ox 98 10/15/19 01:12 - Orders/Labs/Meds Orders: Active Orders 24 hr Category Date Time Status EKG Documentation Completion [RC] STAT Care 10/14/19 21:38 Active UA RFX KATINA AND CULT IF INDIC [URIN] Stat Lab 10/14/19 21:32 Ordered Sodium Chloride 0.9% [Saline Flush] Med 10/14/19 21:33 Active 10 ml FLUSH ASDIRECTED PRN Sodium Chloride 0.9% [Saline Flush] Med 10/14/19 21:33 Active 2.5 ml FLUSH ASDIRECTED PRN Saline Lock Insert [OM.PC] Stat Oth 10/14/19 21:33 Ordered Medication Orders Sodium Chloride (Saline Flush) 10 ml FLUSH ASDIRECTED PRN PRN Reason: Keep Vein Open Sodium Chloride (Saline Flush) 2.5 ml FLUSH ASDIRECTED PRN PRN Reason: Keep Vein Open Labs: Laboratory Tests 10/14/19 10/14/19 Range/Units 21:35 21:35 WBC 11.01 H (4.0-11.0) K/uL RBC 4.57 (4.50-5.90) M/uL Hgb 10.7 L (13.0-17.0) g/dL Hct 34.7 L (38.0-50.0) % MCV 75.9 L (80.0-98.0) fL MCH 23.4 L (27.0-32.0) pg MCHC 30.8 L (31.0-37.0) g/dL RDW Std Deviation 45.2 (28.0-62.0) fl RDW Coeff of Vipin 17 H (11.0-15.0) % Plt Count 470 H (150-400) K/uL MPV 10.20 (7.40-12.00) fL Neut % (Auto) 78.5 (48.0-80.0) % Lymph % (Auto) 14.5 L (16.0-40.0) % [place] % (Auto) 6.4 (0.0-15.0) % Eos % (Auto) 0.4 (0.0-7.0) % Baso % (Auto) 0.2 (0.0-1.5) % Neut # (Auto) 8.7 H (1.4-5.7) K/uL Lymph # (Auto) 1.6 (0.6-2.4) K/uL [place] # (Auto) 0.7 (0.0-0.8) K/uL Eos # (Auto) 0.0 (0.0-0.7) K/uL Baso # (Auto) 0.0 (0.0-0.1) K/uL Nucleated RBC % 0.0 /100WBC Nucleated RBCs # 0 K/uL Sodium 142 (136-148) mmol/L Potassium 3.2 L (3.5-5.1) mmol/L Chloride 106 (98-107) mmol/L Carbon Dioxide 22.5 (21.0-32.0) mmol/L BUN 13 (7.0-18.0) mg/dL Creatinine 0.8 (0.8-1.3) mg/dL Est Cr Clr Drug Dosing 143.80 mL/min Estimated GFR (MDRD) > 60.0 ml/min Glucose 95 (74-106) mg/dL Calcium 8.9 (8.5-10.1) mg/dL Total Bilirubin 0.7 (0.2-1.0) mg/dL AST 31 (15-37) IU/L ALT 44 (14-63) IU/L Alkaline Phosphatase 119 H (46-116) U/L Total Protein 6.9 (6.4-8.2) g/dL Albumin 4.0 (3.4-5.0) g/dL Globulin 2.9 (2.6-4.0) g/dL Albumin/Globulin Ratio 1.4 (0.9-1.6) Lipase 156 (73-393) U/L Meds: Medications Generic Name Dose Route Start Last Admin Trade Name Freq PRN Reason Stop Dose Admin Sodium Chloride 10 ml 10/14/19 21:33 Saline Flush FLUSH ASDIRECTED PRN Keep Vein Open Sodium Chloride 2.5 ml 10/14/19 21:33 Saline Flush FLUSH ASDIRECTED PRN Keep Vein Open Discontinued Medications Generic Name Dose Route Start Last Admin Trade Name Freq PRN Reason Stop Dose Admin Hydromorphone HCl 1 mg 10/14/19 22:22 10/14/19 22:27 Dilaudid IVPUSH 10/14/19 22:23 1 mg ONETIME ONE Administration Sodium Chloride 1,000 mls @ 999 mls/hr 10/14/19 21:37 10/14/19 21:54 Normal Saline IV 10/14/19 22:37 999 mls/hr STAT ONE Administration Iopamidol 100 ml 10/14/19 23:35 10/14/19 23:36 Isovue Multipack-370 (76%) IVPUSH 10/14/19 23:36 100 ml ONETIME ONE Administration Morphine Sulfate 4 mg 10/14/19 21:37 10/14/19 21:59 Morphine IVPUSH 10/14/19 21:38 Not Given ONETIME ONE Morphine Sulfate 6 mg 10/14/19 21:39 10/14/19 21:54 Morphine IVPUSH 10/14/19 21:40 6 mg ONETIME ONE Administration Ondansetron HCl 4 mg 10/14/19 21:38 10/14/19 21:54 Zofran IVPUSH 10/14/19 21:39 4 mg ONETIME ONE Administration Ondansetron HCl 4 mg 10/14/19 22:23 10/15/19 00:03 Zofran IVPUSH 10/14/19 22:24 Not Given ONETIME ONE Departure - Departure Time of Disposition: 01:38 Disposition: Home, Self-Care 01 Condition: Good Clinical Impression: Cholelithiasis - Discharge Information Instructions: Cholelithiasis, Gallbladder Eating Plan, Cholecystitis, Easy-to- Read Referrals: PCP,None [Primary Care Provider] - Sepsis Event Note - Evaluation Sepsis Screening Result: No Definite Risk - Focused Exam Vital Signs: Vital Signs Temp Pulse Resp BP Pulse Ox 10/15/19 01:12 96.3 F 68 16 111/60 98 10/15/19 00:30 58 L 16 106/58 L 98 10/14/19 22:30 73 16 125/41 L 94 L 10/14/19 21:24 97.4 F 66 22 H 150/65 H 99 Date Exam was Performed: 10/15/19 Time Exam was Performed: 01:31
== END 2019-10-15 01:55 | disposition home or self-care (01) ==
LOC: MW.ED 20:53
DX: K80.20 Calculus of gallbladder without cholecystitis without obstruction (principal); I10 Essential (primary) hypertension; Z79.899 Other long term (current) drug therapy; Z87.891 Personal history of nicotine dependence
CPT/HCPCS: 36415; 74177; 76705; 80053; 83690; 85025; 93005; 96361; 96374; 96375; 99284; J1170; J2270; J2405; J7030; Q9967

== ENCOUNTER 2020-08-03 00:31 | Emergency (ER) | payer BC, OTHER ==
[2020-08-03] MEDS ORDERED: Sodium Chloride 0.9% 10 ML Syringe FLUSH PRN (00:34)
[2020-08-03] MEDS ORDERED: Sodium Chloride 0.9% 2.5 ML Syringe FLUSH PRN (00:34)
--- NOTE | 2020-08-03 00:38 | EDM.PDOC ---
ED HPI GENERAL MEDICAL PROBLEM - General Stated Complaint: CHEST PAIN Time Seen by Provider: 08/03/20 00:35 - History of Present Illness INITIAL COMMENTS - FREE TEXT/NARRATIVE: History of present illness: [] The patient presents with chest tightness. Woke him up at 1120. He is a non-smoker. He also has a cough short of breath. He does not have a fever. 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 He does not interact with them except when he gets out of his truck to feel. Family history of heart disease or stroke. He is not diabetic not treated for blood pressure or cholesterol. Lying in the bed in the emergency department when I examined him his pain is gone. Review of systems: As per history of present illness and below otherwise all systems reviewed and negative. Past medical history: As per history of present illness and as reviewed below otherwise noncontributory. Surgical history: As per history of present illness and as reviewed below otherwise noncontributory. Social history: No reported history of drug or alcohol abuse. Family history: As per history of present illness and as reviewed below otherwise noncontributory. Physical exam: Constitutional - well developed, well-nourished and in no acute distress HEENT - normocephalic, no evidence of trauma - external nose and mouth normal - no mass in neck and no JVD - mucosae moist EYES - full EOM, PERRL, no icterus - no evidence of inflammation, injection, or drainage Respiratory - no respiratory distress, equal bilateral expansion, lungs clear to auscultation and no abnormal lung sounds Cardiovascular - Regular Rhythm with S1 and S2 appreciated and no murmur, gallop or rub. GI - abdomen soft without distension or organomegaly - normal bowel sounds - no guard or rebound Musculoskeletal no gross deformity of long bones or joints - no tenderness, swelling or edema Neurologic - Alert and oriented times four - CN II-XII grossly intact - motor sensory and coordination symmetrically normal Psychiatric - appropriate mood and affect with normal thought content Hematologic - No petechiae or purpura - mucosa appropriate color and sclera not pale - normal nail bed color and refill Integument - no rash or evidence of trauma - normal turgor Diagnostics: [] Therapeutics: [] Impression: [] Plan: [] Definitive disposition and diagnosis as appropriate pending reevaluation and review of above. - Related Data Allergies Allergy/AdvReac Type Severity Reaction Status Date / Time No Known Allergies Allergy Verified 08/03/20 01:43 Home Meds: Home Meds Dextroamphetamine/Amphetamine [Adderall 20 mg Tablet] 20 mg PO DAILY 08/04/19 [History] Ferrous Sulfate 325 mg PO DAILY 08/04/19 [History] Metoprolol Succinate [Toprol XL 100mg] 100 mg PO DAILY 08/04/19 [History] Omeprazole 1 tab PO DAILY 08/04/19 [History] Sucralfate 1 gm PO QID 10/14/19 [History] Omeprazole 40 mg PO DAILY #30 capsule. 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 Hematologic History: Reports: Anemia Immunologic History: Reports: None Oncologic (Cancer) History: Reports: None Dermatologic History: Reports: None - Infectious Disease History Infectious Disease History: Reports: Chicken Pox - Past Surgical History Head Surgeries/Procedures: Reports: None GI Surgical History: Reports: Bariatric Procedure, Other (See Below) Other GI Surgeries/Procedures: gastric bypass Musculoskeletal Surgical History: Reports: Other (See Below) Other Musculoskeletal Surgeries/Procedures:: bilateral ACL repairs (has screw in both knees) Social & Family History - Family History Family Medical History: Noncontributory - Caffeine Use Caffeine Use: Reports: None ED ROS GENERAL - Review of Systems Review Of Systems: Comprehensive ROS is negative, except as noted in HPI. ED EXAM, GENERAL - Physical Exam Exam: See Below Free Text/Narrative:: My physical exam as in the HPI EKG INTERPRETATION EKG Interpretation Comments: EKG done at 12:34 AM on 08/03/2020 is reported at 12:44 AM. He is in a sinus rhythm with a heart rate of 76. The SD interval is 135. QT is 449. The axis is 66. The patient has a normal QRS. The ST segments are minimally elevated in 2 3 aVF as well as V4 V5 and V6. These did not reach the criteria for a STEMI. The prior EKG does not have these elevations. However the patient is pain- free at the time. Impression this could likely indicate that he has injury or ischemia but not a STEMI. Since he is pain-free I will wait for troponin and see if it is reasonable to keep this patient here. Cardiology cases that need intervention are sent to another town because we do not have interventional cardiology. The patient has a history of a gastric bypass. He bought that the idea of getting an aspirin but I told him I will give him an enteric aspirin because of the EKG changes. EKG repeated at 2:57 AM and read at 3:02 AM. The patient has sinus rhythm with a heart rate 92 SD 155 QTC [address] [place] segment elevation that was present on the prior is no longer present QRSs within normal limits. The patient did not have pain when he got here and had a first EKG. It still raised the issue of possible vasospastic angina. Referral for cardiology work-up. Course - Vital Signs Last Recorded V/S: Last Vital Signs Temp 98.2 F 08/03/20 00:35 Pulse 76 08/03/20 03:03 Resp 18 08/03/20 03:03 BP 161/74 H 08/03/20 03:03 Pulse Ox 98 08/03/20 03:03 - Orders/Labs/Meds Orders: Active Orders 24 hr Category Date Time Status EKG 12 Lead [EKG Documentation Completion] [RC] URGENT Care 08/03/20 02:45 Active EKG Documentation Completion [RC] AM Care 08/03/20 00:34 Active CORONAVIRUS COVID-19 PCR PHL Stat Lab 08/03/20 01:20 Received Sodium Chloride 0.9% [Saline Flush] Med 08/03/20 00:34 Active 10 ml FLUSH ASDIRECTED PRN Sodium Chloride 0.9% [Saline Flush] Med 08/03/20 00:34 Active 2.5 ml FLUSH ASDIRECTED PRN Saline Lock Insert [OM.PC] Stat Oth 08/03/20 00:34 Ordered Medication Orders Sodium Chloride (Saline Flush) 10 ml FLUSH ASDIRECTED PRN PRN Reason: Keep Vein Open Sodium Chloride (Saline Flush) 2.5 ml FLUSH ASDIRECTED PRN PRN Reason: Keep Vein Open Labs: Laboratory Tests 08/03/20 08/03/20 08/03/20 Range/Units 00:45 00:45 01:30 WBC 8.04 (4.0-11.0) K/uL RBC 5.03 (4.50-5.90) M/uL Hgb 14.3 (13.0-17.0) g/dL Hct 43.6 (38.0-50.0) % MCV 86.7 (80.0-98.0) fL MCH 28.4 (27.0-32.0) pg MCHC 32.8 (31.0-37.0) g/dL RDW Std Deviation 41.6 (28.0-62.0) fl RDW Coeff of Vipin 14 (11.0-15.0) % Plt Count 337 (150-400) K/uL MPV 9.10 (7.40-12.00) fL Neut % (Auto) 60.1 (48.0-80.0) % Lymph % (Auto) 30.3 (16.0-40.0) % [place] % (Auto) 8.0 (0.0-15.0) % Eos % (Auto) 1.2 (0.0-7.0) % Baso % (Auto) 0.4 (0.0-1.5) % Neut # (Auto) 4.8 (1.4-5.7) K/uL Lymph # (Auto) 2.4 (0.6-2.4) K/uL [place] # (Auto) 0.6 (0.0-0.8) K/uL Eos # (Auto) 0.1 (0.0-0.7) K/uL Baso # (Auto) 0.0 (0.0-0.1) K/uL Sodium 141 (136-148) mmol/L Potassium 3.7 (3.5-5.1) mmol/L Chloride 104 (98-107) mmol/L Carbon Dioxide 26.2 (21.0-32.0) mmol/L BUN 11 (7.0-18.0) mg/dL Creatinine 0.9 (0.8-1.3) mg/dL Est Cr Clr Drug Dosing TNP Estimated GFR (MDRD) > 60.0 ml/min Glucose 98 (74-106) mg/dL Calcium 9.2 (8.5-10.1) mg/dL Total Bilirubin 1.3 H (0.2-1.0) mg/dL AST 18 (15-37) IU/L ALT 28 (14-63) IU/L Alkaline Phosphatase 129 H (46-116) U/L Troponin I < 0.050 (0.000-0.056) ng/mL Total Protein 7.3 (6.4-8.2) g/dL Albumin 4.1 (3.4-5.0) g/dL Globulin 3.2 (2.6-4.0) g/dL Albumin/Globulin Ratio 1.3 (0.9-1.6) SARS CoV-2 RNA Rapid MEGHAN NEGATIVE (NEGATIVE) 08/03/20 Range/Units 02:49 WBC (4.0-11.0) K/uL RBC (4.50-5.90) M/uL Hgb (13.0-17.0) g/dL Hct (38.0-50.0) % MCV (80.0-98.0) fL MCH (27.0-32.0) pg MCHC (31.0-37.0) g/dL RDW Std Deviation (28.0-62.0) fl RDW Coeff of Vipin (11.0-15.0) % Plt Count (150-400) K/uL MPV (7.40-12.00) fL Neut % (Auto) (48.0-80.0) % Lymph % (Auto) (16.0-40.0) % [place] % (Auto) (0.0-15.0) % Eos % (Auto) (0.0-7.0) % Baso % (Auto) (0.0-1.5) % Neut # (Auto) (1.4-5.7) K/uL Lymph # (Auto) (0.6-2.4) K/uL [place] # (Auto) (0.0-0.8) K/uL Eos # (Auto) (0.0-0.7) K/uL Baso # (Auto) (0.0-0.1) K/uL Sodium (136-148) mmol/L Potassium (3.5-5.1) mmol/L Chloride (98-107) mmol/L Carbon Dioxide (21.0-32.0) mmol/L BUN (7.0-18.0) mg/dL Creatinine (0.8-1.3) mg/dL Est Cr Clr Drug Dosing Estimated GFR (MDRD) ml/min Glucose (74-106) mg/dL Calcium (8.5-10.1) mg/dL Total Bilirubin (0.2-1.0) mg/dL AST (15-37) IU/L ALT (14-63) IU/L Alkaline Phosphatase (46-116) U/L Troponin I < 0.050 (0.000-0.056) ng/mL Total Protein (6.4-8.2) g/dL Albumin (3.4-5.0) g/dL Globulin (2.6-4.0) g/dL Albumin/Globulin Ratio (0.9-1.6) SARS CoV-2 RNA Rapid MEGHAN (NEGATIVE) Meds: Medications Generic Name Dose Route Start Last Admin Trade Name Freq PRN Reason Stop Dose Admin Sodium Chloride 10 ml 08/03/20 00:34 Saline Flush FLUSH ASDIRECTED PRN Keep Vein Open Sodium Chloride 2.5 ml 08/03/20 00:34 Saline Flush FLUSH ASDIRECTED PRN Keep Vein Open Discontinued Medications Generic Name Dose Route Start Last Admin Trade Name Freq PRN Reason Stop Dose Admin Aspirin 325 mg 08/03/20 00:42 08/03/20 01:34 Ecotrin PO 08/03/20 00:43 Not Given ONETIME ONE Aspirin Confirm 08/03/20 01:03 08/03/20 01:06 Aspirin Administered 08/03/20 01:04 325 mg Dose Administration 325 mg .ROUTE .STK-MED ONE Pantoprazole Sodium 40 mg/ 20 mls @ 420 mls/hr 08/03/20 01:36 08/03/20 02:15 Sodium Chloride IVPUSH 08/03/20 01:38 420 mls/hr ONETIME ONE Administration Departure - Departure Time of Disposition: 03:33 Disposition: Home, Self-Care 01 Condition: Good Clinical Impression: Gastritis, Chest pain - Discharge Information Prescriptions: Omeprazole 40 mg PO DAILY #30 capsule.dr Instructions: Gastritis, Adult, [id number] Referrals: PCP,None [Primary Care Provider] - Ant Le MD [Physician] - Additional Instructions: You need to see our backshoe person at his next available date work copies of your EKG for medical records and the prior EKG tonight to a backshoe person of your choice. It is possible he needs a medication because of spasm of your coronary vessels. Most likely your pain was secondary to the increased acid in the area of your surgery. Restart a proton pump inhibitor as you have taken in the past and the prescription has been sent to your pharmacy. [facility] [address] [place] [id number] [id number] The following information is given to patients seen in the emergency department who are being discharged to home. This information is to outline your options for follow-up care. We provide all patients seen in our emergency department with a follow-up referral. The need for follow-up, as well as the timing and circumstances, are variable depending upon the specifics of your emergency department visit. If you don't have a primary care physician on staff, we will provide you with a referral. We always advise you to contact your personal physician following an emergency department visit to inform them of the circumstance of the visit and for follow-up with them and/or the need for any referrals to a consulting specialist. The emergency department will also refer you to a specialist when appropriate. This referral assures that you have the opportunity for follow-up care with a specialist. All of these measure are taken in an effort to provide you with optimal care, which includes your follow-up. Under all circumstances we always encourage you to contact your private physician who remains a resource for coordinating your care. When calling for follow-up care, please make the office aware that this follow-up is from your recent emergency room visit. If for any reason you are refused follow-up, please contact the [facility] Emergency De partment at and asked to speak to the emergency department charge nurse. Sepsis Event Note (ED) - Focused Exam Vital Signs: Vital Signs Temp Pulse Resp BP Pulse Ox 08/03/20 03:03 76 18 161/74 H 98 08/03/20 00:35 98.2 F 82 18 146/92 H 99 - My Orders Last 24 Hours: My Active Orders 08/03/20 00:34 EKG Documentation Completion [RC] AM Sodium Chloride 0.9% [Saline Flush] 10 ml FLUSH ASDIRECTED PRN Sodium Chloride 0.9% [Saline Flush] 2.5 ml FLUSH ASDIRECTED PRN Saline Lock Insert [OM.PC] Stat 08/03/20 01:20 CORONAVIRUS COVID-19 PCR PHL Stat 08/03/20 02:45 EKG 12 Lead [EKG Documentation Completion] [RC] URGENT - Assessment/Plan Last 24 Hours: My Active Orders 08/03/20 00:34 EKG Documentation Completion [RC] AM Sodium Chloride 0.9% [Saline Flush] 10 ml FLUSH ASDIRECTED PRN Sodium Chloride 0.9% [Saline Flush] 2.5 ml FLUSH ASDIRECTED PRN Saline Lock Insert [OM.PC] Stat 08/03/20 01:20 CORONAVIRUS COVID-19 PCR PHL Stat 08/03/20 02:45 EKG 12 Lead [EKG Documentation Completion] [RC] URGENT
[2020-08-03] MEDS ORDERED: Aspirin 325 MG Tab.EC PO ONE (00:42)
--- NOTE | 2020-08-03 00:54 | CR ---
INDICATION: Chest pain TECHNIQUE: AP view of the chest COMPARISON: AP chest radiograph 08/17/2019 FINDINGS: The lungs are clear. There is no sizable pleural effusion or pneumothorax. The cardiomediastinal silhouette is normal. Fixation hardware is noted in the distal left clavicle. IMPRESSION: No acute intrathoracic process. Dictated by Nicole Sahu MD @ Aug 03 2020 12:51AM Signed by Dr. Nicole Sahu @ Aug 03 2020 12:52AM
[2020-08-03] MEDS ORDERED: Aspirin 325 MG Tab ONE (01:03)
[2020-08-03 01:17] LABS: BLOOD UREA NITROGEN,BUN 11 mg/dL (7.0-18.0); CARBON DIOXIDE,CO2 26.2 mmol/L (21.0-32.0); CHLORIDE,CL 104 mmol/L (98-107); GLUCOSE RANDOM 98 mg/dL (74-106); POTASSIUM,K 3.7 mmol/L (3.5-5.1); SODIUM,NA 141 mmol/L (136-148)
[2020-08-03] MEDS ORDERED: Pantoprazole 40 MG in Sodium Chloride 0.9% 20 ML IVPUSH ONE (01:36)
== END 2020-08-03 03:55 | disposition home or self-care (01) ==
LOC: MW.ED 00:31
DX: K29.70 Gastritis, unspecified, without bleeding (principal); I10 Essential (primary) hypertension; K21.9 Gastro-esophageal reflux disease without esophagitis; E66.9 Obesity, unspecified; Z68.35 Body mass index [BMI] 35.0-35.9, adult; Z20.828 Contact with and (suspected) exposure to other viral communicable diseases; Z79.899 Other long term (current) drug therapy
CPT/HCPCS: 36415; 71045; 80053; 84484; 85025; 87635; 93005; 96374; 99285; A9270; C9113; 93010; 99284; U0002